=== PATIENT | female | born 1940 | race Caucasian/White ===

== ENCOUNTER → 2023-11-02 13:55 | Outpatient (REF) | payer OTHER, SELFPAY | LOC: HWRCS 13:55 | PROVIDERS: ATTENDING PHYSICIAN Nurse Practitioner Gerontology; FAMILY PHYSICIAN Family Medicine | DX: I42.8 Other cardiomyopathies (principal) | CPT/HCPCS: 93306 ==

== ENCOUNTER → 2024-01-02 11:02 | Outpatient (REF) | payer OTHER, SELFPAY | LOC: PET 11:02 | PROVIDERS: ATTENDING PHYSICIAN Internal Medicine Cardiovascular Disease | DX: I42.8 Other cardiomyopathies (principal); I50.20 Unspecified systolic (congestive) heart failure | CPT/HCPCS: 78431; A9555; J2785 ==

== ENCOUNTER → 2024-03-14 12:58 | Outpatient (REF) | payer OTHER, SELFPAY | LOC: RCS 12:58 | PROVIDERS: ATTENDING PHYSICIAN Nurse Practitioner; FAMILY PHYSICIAN Family Medicine | DX: I42.9 Cardiomyopathy, unspecified (principal) | CPT/HCPCS: 93306 ==

== ENCOUNTER 2024-04-19 06:44 | Day surgery (SDC) | payer OTHER, SELFPAY ==
[2024-04-19] VITALS (12 sets, daily range): BP systolic 109–153; BP diastolic 57–115; BMI 21.5
--- NOTE | 2024-04-19 07:23 | W.ICD.CONTRA ---
Post ICD/PROPERTY UTILIZATION MANAGER-D
-
History of KS?: No
LV Function
Left ventricular function study result?: Ejection Fraction </= 35%
ACEI/ARB/ARNI
Patient already on ACEI/ARB/ARNI: Yes
Beta-Christine
Patient already on Beta Christine: Yes
--- NOTE | 2024-04-19 12:13 | W.PN.UPDATE ---
Update Note
Progress Note Update
Pt seen post ICD implant, dual chamber with 3rd conducting system lead in LV. Left ACW w/aquacel dressing CDI and pressure dressing on top. No ht/bleeding. Pressure dressing to be removed in AM. Activity limitations reviewed w/pt and daughters. Post
CXR w/stable lead position, no pneumothorax. EKG SR w/Vpacing, 90s. Acetaminophen for pain relief, but without complaints at this time. Incision check next week at [facility] as scheduled. Home later today after 2nd dose abx.
--- NOTE | 2024-04-19 13:15 | ITS.CL.ICD ---
Chief Medical Director - ICD
Implantable Cardioverter Defibrillator
Procedure Report:
Date of Procedure: April 19, 2024.
Procedures: Cardiac resynchronization ICD implant. BiV ICD implant.
Indication: Primary prevention ICD. NYHA heart failure class: III for more than 9 months. LVEF 30-35%. QRS duration 160 ms (manually measured today) with a left bundle branch block. No history of VT/VF. Nonischemic cardiomyopathy. No history of
prior [place]. Life expectancy more than 1 year. Cardiac catheterization 02/18/2022 confirmed heart failure: PCWP 28 mmHg, RA 14, PA 54/33 with no CAD. Shared decision making was used by Dr. Cooper about device implantation today.
Performing physician: Milton Bullock MD, [facility].
Implants:
Pulse Generator: Medtronic; Model# [id number]; Serial# [id number].
Atrial Lead: Medtronic: Model# 5076-45cm; Serial# [id number].
Right Ventricular Defibrillation Lead: Medtronic; Model# [id number]; Serial# [id number].
Cardiac resynchronization lead: Medtronic; Model# 3830-69cm; Serial# [id number].
Technique: A time out was performed The procedure site was identified. The patient was anesthetized by the anesthesia service. Preoperative cefazolin was administered. The patient was prepped and draped in the usual fashion. Local anesthetic was
applied to the left prepectoral subcutaneous tissue. A 3 inch incision was made along the left deltopectoral groove. Dissection was carried to the fascia. The left cephalic vein was easily isolated and proximal and distal control with 2-0 Vicryl
suture. Using a micropuncture needle to access the cephalic vein under direct visualization a wire was advanced into the central circulation. A 7 Fr introducer was placed to allow two additional 0.35 J wires to be advanced and a retained guidewire
technique was planned. The leads were introduced with hemostatic peel away introducer sheaths. The right ventricular defibrillation lead was placed at the right ventricular apical to mid septum. The lead was secured to the pectoralis muscle and
fascia with two 0-silk sutures. The cephalic vein was too small to accept more leads/sheaths. A subcutaneous pocket was created with Bovie cautery. The left axillary vein was accessed with two separate percutaneous micro- punctures without
difficulty. The atrial lead was then placed in the right atrial appendage. The atrial lead was secured to the pectoralis muscle and fascia with two 0-silk sutures. The coronary sinus could not be cannulated despite attempts with two different shaped
Command sheaths. I proceed with conduction system pacing a appropriate option over extensive prolonged attempts of CS cannulation or referral for surgical LV lead placement. The resynchronization lead was placed using utilizing the [employer] His
delivery catheter ([id number]) that was advanced to the left bundle area as confirmed by fluoroscopy in the MACEDONIAN and CANO projections. The lead tip was advanced. PVC morphology was reviewed. When a satisfactory location was identified (W pattern
observed) the lead was screwed into position with serial turns. Septal engagement was confirmed with gentle torque applied to the guide sheath. After each series of turns (2-3) unipolar sensed morphology and impedance, and paced morphology of V1 was
analyzed. The lead was further advanced until satisfactory morphology and electrical characteristics were confirmed. The RV lead was placed in the first location evaluated. The long guiding sheath was cut and removed from the RV without change in
lead position, impedance, sensing, or capture. The resynchronization lead was secured to the pectoralis muscle and fascia with two 0-silk sutures. 8 volt pacing did not capture the diaphragm from any lead. Hemostasis was excellent. The leads were
appropriately attached to the device. The pocket was irrigated with antibiotic solution. The device and leads were placed in the pocket. The incision was closed in three layers with absorbable suture. Steri-strips and a silver impregnated dressing
were placed. Estimated blood loss was 10 ml. There were no complications. Fluoroscopy time: 8.9 minutes and DAP 1.65 GyCM2. The device was then interrogated after skin closure. No IV contrast was administered.
System Analysis:
RA lead: P: 1.6 mV; Threshold: 0.75 V @ 0.4 ms; Impedance: 513 ohms.
RV ICD lead: R: 6 mV; Threshold: 0.5 V @ 0.4 ms; Impedance: 0.5 ohms. HVB 59 ohms
RV resynchronization/Left Bundle Lead: R: 6 mV; Threshold: 0.5 V @ 0.4 ms; Impedance: 779 ohms.
Paced QRS characteristics: V1 has Qr morphology and measures 110 ms in duration, LVAT (stim to peak V5/V6) is 63 ms, and R peak V1 to R peak V6 is 85 ms
Final Programming: Tachy: VT/VF:188 bpm; Justice: DDDR 60-130 bpm.
Conclusion: Uncomplicated primary prevention BiV ICD implant. The left bundle lead is a 3830 lead that successful captures the left bundle. The ICD system is MRI safe/conditional.
Recommendation: Routine post ICD care.
cc: Federica Cooper MD and Kell Noel DO.
[2024-04-19] MEDS: ANCEF 5 IV (13:52)
== END 2024-04-19 14:09 | disposition home or self-care (01) ==
LOC: CATH 06:44
PROVIDERS: ATTENDING PHYSICIAN Internal Medicine Cardiovascular Disease; FAMILY PHYSICIAN Family Medicine; OTHER PHYSICIAN Internal Medicine Cardiovascular Disease
DX: I42.8 Other cardiomyopathies (principal); I44.7 Left bundle-branch block, unspecified; I50.20 Unspecified systolic (congestive) heart failure; Z79.899 Other long term (current) drug therapy
CPT/HCPCS: 33249; 71045; 93005; C1769; C1777; C1882; C1887; C1892; C1898

== ENCOUNTER → 2024-11-19 13:58 | Outpatient (REF) | payer OTHER, SELFPAY | LOC: RCS 13:58 | PROVIDERS: ATTENDING PHYSICIAN Internal Medicine Cardiovascular Disease; FAMILY PHYSICIAN Family Medicine | DX: I50.20 Unspecified systolic (congestive) heart failure (principal) | CPT/HCPCS: 93306 ==